=== PATIENT | female | born 1970 | race Caucasian/White ===

== ENCOUNTER 2016-03-27 12:40 | Emergency (ER) | payer SELFPAY ==
[2016-03-27 13:11] VITALS: BP 140/72
--- NOTE | 2016-03-27 13:13 | ER Document Report ---
ED Medical Screen (RME) - General Stated Complaint: LEG PAIN Notes: 45-year-old female presents emergency Department with bilateral lower extremity swelling for 6 weeks Family history of congestive heart failure (-)recent travel, tobacco use, BC I have greeted and performed a rapid initial assessment of this patient. A comprehensive ED assessment and evaluation of the patient, analysis of test results and completion of the medical decision making process will be conducted by additional ED providers. TRAVEL OUTSIDE OF THE [place] IN LAST 30 DAYS: No - Related Data Allergies/Adverse Reactions: No Known Allergies Allergy (Unverified 03/27/16 13:11) Physical Exam - Vital signs Vitals: Temp Pulse Resp BP Pulse Ox 98.2 F 78 20 140/72 H 96 03/27/16 13:09 03/27/16 13:09 03/27/16 13:03/27/16 13:09 03/27/16 13:09 Course - Vital Signs Vital signs: Temp Pulse Resp BP Pulse Ox 98.2 F 78 20 140/72 H 96 03/27/16 13:09 03/27/16 13:09 03/27/16 13:09 03/27/16 13:09 03/27/16 13:09
[2016-03-27 13:44] LABS: ABSOLUTE LYMPHOCYTES (AUTO) 0.8 10^3/uL (0.5-4.7); ABSOLUTE MONOCYTES (AUTO) 0.4 10^3/uL (0.1-1.4); ABSOLUTE NEUT (AUTO) 3.7 10^3/uL (1.7-8.2); BASOPHILS % (AUTO) 0.6 % (0-2); EOSINOPHILS % (AUTO) 0.7 % (0-6); HEMOGLOBIN 12.4 g/dL (12.0-15.5); HGB HCT DIFFERENCE 0.2; LYMPHOCYTES % (AUTO) 16.3 % (13-45); MEAN CORPUSCULAR HGB CONC 33.4 g/dL (32.0-36.0); MEAN CORPUSCULAR VOLUME 81 fl (80-97); MONOCYTES % (AUTO) 8.4 % (3-13); RED BLOOD COUNT 4.58 10^6/uL (3.72-5.28); RED CELL DISTRIBUTION WIDTH 14.8 % (11.5-14.0)
[2016-03-27 14:01] LABS: ALANINE AMINOTRANSFERASE 36 U/L (9-52); ALBUMIN 3.8 g/dL (3.5-5.0); ALKALINE PHOSPHATASE 91 U/L (38-126); ANION GAP 11 (5-19); ASPARTATE AMINO TRANSFERASE 23 U/L (14-36); BILIRUBIN,TOTAL 1.1 mg/dL (0.2-1.3); BLOOD UREA NITROGEN 11 mg/dL (7-20); CALCIUM 8.7 mg/dL (8.4-10.2); CARBON DIOXIDE 24 mmol/L (22-30); CHLORIDE 104 mmol/L (98-107); GLUCOSE 102 mg/dL (75-110); POTASSIUM 4.2 mmol/L (3.6-5.0); TOTAL PROTEIN 7.1 g/dL (6.3-8.2)
--- NOTE | 2016-03-27 14:58 | ER Document Report ---
ED Extremity Problem, Lower <VIRGINIE KEITH - Last Filed: 03/27/16 14:58> - General Information source: Patient TRAVEL OUTSIDE OF THE [place] IN LAST 30 DAYS: No - HPI Patient complains to provider of: Swelling Location: Leg - R & L Occurred: Other - Past 8 weeks Onset/Duration: Persistent <JB HAMMOND - Last Filed: 03/27/16 15:17> - General Chief Complaint: Leg Pain Stated Complaint: LEG PAIN Notes: Patient is a morbidly obese 45-year-old female presenting to the emergency department concerned of leg swelling onset approximately 8 weeks ago. Patient states that they have become erythematous over the past 6 weeks, and the pain began 4-5 weeks ago. Patient states the pain is intermittent, and her legs will weep every once in a while if something hits her leg. This morning patient was at neighbor's house and the neighbor's kitten scratched her leg. Patient states her leg has been weeping since approximately 10 AM. Patient has no other complaints at this time, but is just tired of her legs being swollen. Patient does not have a primary care provider. (JB HAMMOND) - Related Data Allergies/Adverse Reactions: aripiprazole [From Abilify] Allergy (Verified 03/27/16 13:11) Past Medical History - General Information source: Patient, [facility] Records - Social History Smoking Status: Never Smoker Chew tobacco use (# tins/day): No Frequency of alcohol use: Occasional Drug Abuse: None Family History: Reviewed & Not Pertinent Patient has suicidal ideation: No Patient has homicidal ideation: No Psychiatric Medical History: Reports: Hx Depression Surgical Hx: Negative <JB HAMMOND - Last Filed: 03/27/16 15:17> Review of Systems - Review of Systems Constitutional: No symptoms reported EENT: No symptoms reported Cardiovascular: No symptoms reported Respiratory: No symptoms reported Gastrointestinal: No symptoms reported Genitourinary: No symptoms reported Female Genitourinary: No symptoms reported Musculoskeletal: See HPI, Leg swelling Skin: No symptoms reported Hematologic/Lymphatic: No symptoms reported Neurological/Psychological: No symptoms reported -: Yes All other systems reviewed and negative <JB HAMMOND - Last Filed: 03/27/16 15:17> Physical Exam - General General appearance: Alert - HEENT Head: Normocephalic, Atraumatic Eyes: Normal Pupils: PERRL - Respiratory Respiratory status: No respiratory distress Breath sounds: Normal - Cardiovascular Rhythm: Regular - Abdominal Inspection: Morbidly Obese Tenderness: Nontender - Back Back: Normal - Extremities General upper extremity: Normal inspection, Normal color, Normal ROM General lower extremity: Edema - Severe pitting edema bilateral lower extremities. Left lower extremity erythematous and cellulitic. Bilateral chronic skin thickening with dry scaling skin. Toenail thickening with fungal infection of toenail of right first digit. <JB HAMMOND - Last Filed: 03/27/16 15:17> - Vital signs Vitals: Temp Pulse Resp BP Pulse Ox 98.2 F 78 20 140/72 H 96 03/27/16 13:09 03/27/16 13:09 03/27/16 13:09 03/27/16 13:09 03/27/16 13:09 (VIRGINIE KEITH) (JB HAMMOND) Course - Laboratory Result Diagrams: 03/27/16 13:24 03/27/16 13:24 <VIRGINIE KEITH - Last Filed: 03/27/16 14:58> - Laboratory Result Diagrams: 03/27/16 13:24 03/27/16 13:24 <JB HAMMOND - Last Filed: 03/27/16 15:17> - Vital Signs Vital signs: Temp Pulse Resp BP Pulse Ox 98.2 F 78 20 140/72 H 96 03/27/16 13:09 03/27/16 13:09 03/27/16 13:09 03/27/16 13:09 03/27/16 13:09 (VIRGINIE KEITH) (JB HAMMOND) - Laboratory Laboratory results interpreted by me: 03/27/16 03/27/16 13:24 13:24 RDW 14.8 H NT-Pro-B Natriuret Pep 314 H (VIRGINIE KEITH) (JB HAMMOND) Discharge <VIRGINIE KEITH - Last Filed: 03/27/16 14:58> <JB HAMMOND - Last Filed: 03/27/16 15:17> - Discharge Clinical Impression: Peripheral edema Cellulitis Qualifiers: Site of cellulitis: extremity Site of cellulitis of extremity: lower extremity Laterality: left Qualified Code(s): L03.116 - Cellulitis of left lower limb Cat scratch of left lower leg Qualifiers: Encounter type: initial encounter Qualified Code(s): S80.812A - Abrasion, left lower leg, initial encounter Additional Instructions: Cellulitis: You have an infection of your skin and underlying soft tissues called cellulitis. This is due to bacteria, which can enter through any break in the skin, or even through an irritated hair follicle. Untreated, cellulitis will usually worsen. Antibiotics are required. Usually, warm packs or warm soaks, and elevation of the infected area are recommended. You should start getting better within 24 to 36 hours. Most infections respond quickly to the right medication. Follow-up care is important, however, to check for abscess (boil) formation, unsuspected foreign body, or resistant infection. If you develop fever, chills, or if the area of infection is becoming rapidly more swollen or painful, call the doctor at once. Edema, Peripheral: You have swelling in your legs. This is called peripheral edema. It can be caused by "leaky capillaries," inflammation, disease of the leg veins, or excess salt and water in your body. Edema may be a sign of heart, kidney, or liver disease. A medical evaluation can determine if there is a serious underlying cause for your edema. Avoid prolonged standing. If you must sit for a long time, occasionally get up and walk around or elevate your legs. Support stockings can be helpful in limiting swelling. Often diuretic or water pills are used to remove excess salt and water from your body. Call the doctor or return if you develop increased swelling, pain, or redness, shortness of breath, chest pain, or any other significant change. TAKE THE MEDICATIONS PRESCRIBED. ELEVATE YOUR FEET ALL THE TIME. LIMIT YOUR INTAKE OF SODIUM IN YOUR DIET. EAT A BANANA EVERY OTHER DAY TO REPLACE POTASSIUM. FOLLOW UP WITH A LOCAL MEDICAL DOCTOR IN ONE WEEK FOR RECHECK, AND CORRECTION TREATMENT OF YOUR EDEMA. RETURN TO THE EMERGENCY ROOM IF ANY NEW OR WORSENING SYMPTOMS. Prescriptions: Amoxicillin/Potassium Clav [Augmentin 875-125 Tablet] 1 each PO BID #14 tablet Furosemide [Lasix] 10 mg PO QAM #10 tablet Marii Attestation: 03/27/16 15:04 I personally performed the services described in the documentation, reviewed and edited the documentation which was dictated to the scribe in my presence, and it accurately records my words and actions. (VIRGINIE KEITH) Scribe Documentation - Scribe Written by Marii:: Jb Hammond 03/27/2016 1458 acting as scribe for :: Florinda <JB HAMMOND - Last Filed: 03/27/16 15:17>
--- NOTE | 2016-03-28 00:04 | EKG REPORT ---
SEVERITY:- BORDERLINE ECG - SINUS RHYTHM VENTRICULAR PREMATURE COMPLEX : Confirmed by: Kristopher Mendoza 28-Mar-2016 00:03:21
== END 2016-03-27 17:31 | disposition home or self-care (01) ==
LOC: ER 12:40
DX: S80.812A Abrasion, left lower leg, initial encounter (principal); L03.116 Cellulitis of left lower limb; R60.9 Edema, unspecified; E66.01 Morbid (severe) obesity due to excess calories; W55.03XA Scratched by cat, initial encounter; Y92.009 Unspecified place in unspecified non-institutional (private) residence as the place of occurrence of the external cause
CPT/HCPCS: 36415; 80053; 83880; 85025; 93005; 93010; 99283

== ENCOUNTER → 2016-05-02 | Outpatient (CLI) | payer OTHER | LOC: CCC 12:12 | DX: M54.9 Dorsalgia, unspecified (principal); M25.50 Pain in unspecified joint; R60.0 Localized edema | CPT/HCPCS: 36415; 83036; 86430 ==

== ENCOUNTER → 2016-05-19 | Outpatient (CLI) | payer OTHER ==
[2016-05-19 16:30] LABS: HEMATOCRIT 38.4 % (36.0-47.0); HEMOGLOBIN 12.8 g/dL (12.0-15.5); MEAN CORPUSCULAR HEMOGLOBIN 27.3 pg (27.0-33.4); MEAN CORPUSCULAR HGB CONC 33.4 g/dL (32.0-36.0); MEAN CORPUSCULAR VOLUME 82 fl (80-97); RED CELL DISTRIBUTION WIDTH 15.3 % (11.5-14.0); WHITE BLOOD COUNT 7.9 10^3/uL (4.0-10.5)
[2016-05-19 16:58] LABS: ANION GAP 11 (5-19); BLOOD UREA NITROGEN 12 mg/dL (7-20); CALCIUM 9.1 mg/dL (8.4-10.2); CARBON DIOXIDE 27 mmol/L (22-30); CHLORIDE 103 mmol/L (98-107); CREATININE RESULT 0.73 mg/dL (0.52-1.25); GLUCOSE 110 mg/dL (75-110); POTASSIUM 4.3 mmol/L (3.6-5.0); SODIUM 141.4 mmol/L (137-145)
[2016-05-19 17:15] LABS: ERYTHROCYTE SEDIMENTATION RATE 43 mm/hr (0-20)
== END ==
LOC: OD 15:43
DX: M79.661 Pain in right lower leg (principal)
CPT/HCPCS: 36415; 80048; 85027; 85652

== ENCOUNTER 2016-07-06 19:41 | Emergency (ER) | payer OTHER ==
[2016-07-07] MEDS ORDERED: SULFAMETHOXAZOLE/TRIMETHOPRIM 800-160 MG TABLET PO ONE (00:06)
[2016-07-07] MEDS ORDERED: MUPIROCIN 2% OINTMENT 22 GM TP ONE (00:06)
--- NOTE | 2016-07-07 00:06 | ER Document Report ---
ED Extremity Problem, Lower - General Chief Complaint: Leg Swelling Stated Complaint: LEG PAIN Time Seen by Provider: 07/06/16 22:39 Mode of Arrival: Ambulatory Information source: Patient Notes: Patient is a 45-year-old female who presents to the ER today for possible cellulitis in the right lower leg with open sores. Patient states that she's been nursing these at home with alcohol and Neosporin for approximately 1 week but that the redness and weeping sores keep getting worse. Patient denies any fever or chills, states that she's had cellulitis before. TRAVEL OUTSIDE OF THE [place] IN LAST 30 DAYS: No - Related Data Allergies/Adverse Reactions: aripiprazole [From Abilify] Allergy (Verified 07/06/16 20:04) shellfish derived Allergy (Verified 07/06/16 20:04) Home Medications: Current Home Medications Furosemide [Lasix] 2 tab PO QAM 07/06/16 [History] Past Medical History - General Information source: Patient - Social History Smoking Status: Unknown if Ever Smoked Family History: Reviewed & Not Pertinent Patient has suicidal ideation: No Patient has homicidal ideation: No Renal/ Medical History: Denies: Hx Peritoneal Dialysis Psychiatric Medical History: Reports: Hx Depression Surgical Hx: Negative Review of Systems - Review of Systems Constitutional: No symptoms reported EENT: No symptoms reported Cardiovascular: No symptoms reported Respiratory: No symptoms reported Gastrointestinal: No symptoms reported Genitourinary: No symptoms reported Female Genitourinary: No symptoms reported Musculoskeletal: No symptoms reported Skin: See HPI Hematologic/Lymphatic: No symptoms reported Neurological/Psychological: No symptoms reported Physical Exam - Vital signs Vitals: Temp Pulse Resp BP Pulse Ox 98.3 F 80 18 165/92 H 98 07/06/16 20:05 07/06/16 20:05 07/06/16 20:05 07/06/16 20:05 07/06/16 20:05 - Notes Notes: PHYSICAL EXAMINATION: GENERAL: Appears older than stated age, chronically ill-appearing, obese, but in no acute distress. HEAD: Atraumatic, normocephalic. EYES: Pupils equal round and reactive to light, extraocular movements intact, sclera anicteric, conjunctiva are normal. NECK: Normal range of motion, supple without lymphadenopathy LUNGS: CTAB and equal. No wheezes rales or rhonchi. HEART: Regular rate and rhythm without murmurs EXTREMITIES: Normal range of motion, no pitting edema. No cyanosis. NEUROLOGICAL: Cranial nerves grossly intact. Normal sensory/motor exams. PSYCH: Normal mood, normal affect. SKIN: Warm, Dry, normal turgor, 2+ pitting edema to bilateral extremities equally, erythema in 3 different areas, largest approximately 3 cm in diameter to right lower leg, tender to palpation over erythematous areas, 3 open sores, weeping clear fluid Course - Re-evaluation Re-evalutation: 07/07/16 00:05 Patient started on antibiotic here, however afebrile with normal vital signs. - Vital Signs Vital signs: Temp Pulse Resp BP Pulse Ox 98.3 F 80 18 165/92 H 98 07/06/16 20:05 07/06/16 20:05 07/06/16 20:05 07/06/16 20:05 07/06/16 20:05 Discharge - Discharge Clinical Impression: Cellulitis Qualifiers: Site of cellulitis: extremity Site of cellulitis of extremity: lower extremity Laterality: right Qualified Code(s): L03.115 - Cellulitis of right lower limb Condition: Stable Disposition: HOME, SELF-CARE Additional Instructions: Please take entire antibiotic even if the area looks better. Return immediately for any new or worsening symptoms. Follow up with primary care provider, call tomorrow to make followup appointment. Prescriptions: Sulfamethoxazole/Trimethoprim [Bactrim Ds Tablet] 1 each PO BID #20 tablet
[2016-07-07 00:32] VITALS: BP 159/99
== END 2016-07-07 00:31 | disposition home or self-care (01) ==
LOC: ER 19:41
DX: L03.115 Cellulitis of right lower limb (principal); M79.89 Other specified soft tissue disorders; M79.609 Pain in unspecified limb; Z79.899 Other long term (current) drug therapy
CPT/HCPCS: 99283; J3490

== ENCOUNTER → 2016-10-19 | Outpatient (CLI) | payer OTHER ==
--- NOTE | 2016-10-20 09:38 | WOMENS IMAGING REPORT ---
EXAM DESCRIPTION: BILAT SCREENING MAMMO W/CAD COMPLETED DATE/TIME: 10/19/2016 1:52 pm REASON FOR STUDY: SCREENING MAMMO Z12.31 ENCNTR SCREEN MAMMOGRAM FOR MALIGNANT NEOPLASM OF JAMSHID COMPARISON: 12/08/2011 TECHNIQUE: Standard craniocaudal and mediolateral oblique views of each breast recorded using digita l acquisition. LIMITATIONS: None. FINDINGS: No masses, calcifications or architectural distortion. No areas of suspicion. Read with the assistance of CAD. .[facility] - R2 Cenova Version 1.3 .[facility] - R2 Cenova Version 1.3 .[facility] - R2 Cenova Version 2.4 .[facility] - R2 Cenova Version 2.4 .[facility] - R2 [employer] Version 9.2 IMPRESSION: NORMAL MAMMOGRAM. BIRADS 1. BREAST DENSITY: b. There are scattered areas of fibroglandular density. BIRAD: 1 NEGATIVE RECOMMENDATION: ROUTINE SCREENING Please consider bilateral screening tomosynthesis in September 2017 COMMENT: The patient has been notified of the results by letter per SA requirements. Additional no tification policies are in place for contacting patient with suspicious or incomplete findings. Quality ID #[id number]: The [employer] recommends an annual screening mammogram for women aged 40 years or over. This facility utilizes a reminder system to ensure that all patients receive reminder letters, and/or direct phone calls for appointments. This includes reminders for routine scr eening mammograms, diagnostic mammograms, or other Breast Imaging Interventions when appropriate. Th is patient will be placed in the appropriate reminder system. The [employer] [place] [employer] (A[employer]) has developed recommendations for screening MRI of the breast s in certain patient populations, to be used in conjunction with mammography. Breast MRI surveillanc e may be appropriate for women with more than 20% lifetime risk of developing breast cancer as deter mined by genetic testing, significant family history of the disease, or history of mantle radiation f or Hodgkins Disease. ACR Practice Guidelines 2008. TECHNICAL DOCUMENTATION: FINDING NUMBER: (1) ASSESSMENT: (1) JOB ID: [id number] [employer]- All Rights Reserved
== END ==
LOC: WI 13:30
PROVIDERS: ATTEND Nurse Practitioner Women's Health
DX: Z12.31 Encounter for screening mammogram for malignant neoplasm of breast (principal)
CPT/HCPCS: 77067; G0202

== ENCOUNTER 2016-10-25 20:01 | Emergency (ER) | payer OTHER ==
[2016-10-25 20:41] VITALS: BP 156/99
[2016-10-25] MEDS ORDERED: SULFAMETHOXAZOLE/TRIMETHOPRIM 800-160 MG TABLET PO ONE (23:24)
[2016-10-25] MEDS ORDERED: CEPHALEXIN 500 MG CAPSULE PO ONE (23:24)
[2016-10-25] MEDS ORDERED: ONDANSETRON 4 MG TAB.RAPDIS PO ONE (23:26)
[2016-10-25] MEDS ORDERED: IBUPROFEN 800 MG TABLET PO ONE (23:26)
--- NOTE | 2016-10-25 23:29 | ER Document Report ---
HPI - HPI Patient complains to provider of: Low back pain and right lower leg cellulitis Onset: Last week Onset/Duration: Gradual Pain Level: 4 Context: 46-year-old morbidly obese female nondiabetic is complaining of straining her back last week, the pain is all the way across. No saddle anesthesia, no radiculopathy, no fever or chills, no IV drug use. She also states that she has a recurrent cellulitis to her right lower leg. And she knows she needs antibiotics this time because the redness and heat has not gone away after 4 days. Associated Symptoms: None Exacerbated by: Movement Relieved by: Denies Similar symptoms previously: Yes Recently seen / treated by doctor: No [facility] - ROS ROS below otherwise negative: Yes Systems Reviewed and Negative: Yes All other systems reviewed and negative - CONSTITUTIONAL Constitutional: DENIES: Fever, Chills - EENT EENT: DENIES: Sore Throat, Ear Pain, Nasal Drainage-Clear, Nasal Drainage- Purulent, Congestion, Eye problems - NEURO Neurology: DENIES: Headache, Weakness, Vision blurred, Dizzinesss / Vertigo - CARDIOVASCULAR Cardiovascular: DENIES: Chest pain - RESPIRATORY Respiratory: DENIES: Trouble Breathing, Coughing - GASTROINTESTINAL Gastrointestinal: DENIES: Abdominal Pain, Nausea, Patient vomiting, Diarrhea, Constipation, Black / Bloody Stools - URINARY Urinary: DENIES: Dysuria, Urgency, Frequency - REPRODUCTIVE Reproductive: DENIES: : - MUSCULOSKELETAL Musculoskeletal: REPORTS: Extremity pain - bilat LE, Back Pain, Neck Pain, Swelling - bilat LE - DERM Skin Color: Normal - NURSING COMMENTS Comment: Pt presents with c/o LBP and bilateral lower leg pain/cellulitis. See ED triage note. Past Medical History - General Information source: Patient - Social History Smoking Status: Current Every Day Smoker Frequency of alcohol use: None Drug Abuse: None Lives with: Family Family History: Reviewed & Not Pertinent Patient has suicidal ideation: No Patient has homicidal ideation: No Renal/ Medical History: Denies: Hx Peritoneal Dialysis Psychiatric Medical History: Reports: Hx Depression Surgical Hx: Negative Vertical Provider Document - CONSTITUTIONAL Agree With Documented VS: Yes Exam Limitations: No Limitations - INFECTION CONTROL TRAVEL OUTSIDE OF THE [place] IN LAST 30 DAYS: No - HEENT HEENT: Normal ENT Exam - NECK Neck: Supple - RESPIRATORY Respiratory: Breath Sounds Normal, No Respiratory Distress O2 Sat by Pulse Oximetry: 97 - CARDIOVASCULAR Cardiovascular: Regular Rate, Regular Rhythm - BACK Back: Normal Inspection Notes: tender lumbar muscles - MUSCULOSKELETAL/EXTREMETIES Musculoskeletal/Extremeties: MAEW, FROM, Tender - erythematous, tender, warm right lower leg, anterior lateral. 2 + DP. Chronic edema bilateral lower legs. - NEURO Level of Consciousness: Awake, Alert, Appropriate Motor/Sensory: No Motor Deficit, No Sensory Deficit Deep Tendon Reflexes: 2+ - bilateral patellar and ankle - DERM Integumentary: Rash - thick hyperkeratotic skin anterior lower obese legs Course - Vital Signs Vital signs: Temp Pulse Resp BP Pulse Ox 98.7 F 81 18 156/99 H 97 10/25/16 20:35 10/25/16 20:35 10/25/16 20:35 10/25/16 20:35 10/25/16 20:35 Discharge - Discharge Clinical Impression: cellulitis right lower leg Low back strain Qualifiers: Encounter type: initial encounter Qualified Code(s): S39.012A - Strain of muscle, fascia and tendon of lower back, initial encounter Condition: Good Disposition: HOME, SELF-CARE Instructions: [facility], Cellulitis ([facility]), Cephalexin ([facility]), Low Back Pain ([facility]), Trimethoprim-Sulfa ([facility]), Warm Packs ([facility]) Additional Instructions: elevate warm compress to er if worse see [facility] for follow up motrin for back strain Please complete the patient satisfaction survey if you get one, and return it.. If you do not receive a survey, then you can go to the [facility] website, [email or web address] and place your comments about your very good care. Thank you very much. It was a pleasure being your medical provider today. Prescriptions: Ibuprofen [Motrin 800 mg Tablet] 800 mg PO Q8HP PRN #30 tablet PRN Reason: Cephalexin Monohydrate [Keflex 500 mg Capsule] 500 mg PO QID #40 capsule Sulfamethoxazole/Trimethoprim [Sulfamethoxazole-Tmp Ds Tablet] 1 each PO BID # 20 tablet
== END 2016-10-25 23:42 | disposition home or self-care (01) ==
LOC: ER 20:01
DX: S39.012A Strain of muscle, fascia and tendon of lower back, initial encounter (principal); M54.5 Low back pain; L03.115 Cellulitis of right lower limb; X58.XXXA Exposure to other specified factors, initial encounter
CPT/HCPCS: 99283; S0119